=== PATIENT | female | born 1930 | race Hispanic/Latino ===

== ENCOUNTER → 2018-09-18 | Outpatient (CLI) | payer OTHER | END | disposition home or self-care (01) | LOC: RAH 08:58 | PROVIDERS: ATTEND Internal Medicine Gastroenterology | DX: K72.90 Hepatic failure, unspecified without coma (principal); K74.60 Unspecified cirrhosis of liver; I86.8 Varicose veins of other specified sites; K76.89 Other specified diseases of liver | CPT/HCPCS: 76700; 93975 ==

== ENCOUNTER → 2018-10-04 | Outpatient (CLI) | payer OTHER ==
[~2018-10-04] MED LIST: IOHEXOL-350 75 ML VIAL IV ONE
== END | disposition home or self-care (01) ==
LOC: RAH 08:43
PROVIDERS: ATTEND Internal Medicine Gastroenterology
DX: K74.60 Unspecified cirrhosis of liver (principal); K57.30 Diverticulosis of large intestine without perforation or abscess without bleeding; E77.8 Other disorders of glycoprotein metabolism; R18.8 Other ascites
CPT/HCPCS: 74178; Q9967